=== PATIENT | female | born 1945 | race Caucasian/White ===

== ENCOUNTER 2024-05-10 09:08 | Emergency (ER) | payer MEDICARE, OTHER, SELFPAY ==
[2024-05-10 09:17] VITALS: BP 191/78
[2024-05-10 09:28] VITALS: BMI 25.4
[2024-05-10 09:31] VITALS: BP 176/74
--- NOTE | 2024-05-10 09:43 | ED.GENMED ---
History of Present Illness
General
Chief Complaint: Heart Rate Problem
Source: patient
Time Seen by Provider: 05/10/24 09:22
History of Present Illness
History of Present Illness:
78-year-old female with past medical history of hypertension and anxiety presenting to the emergency department for evaluation of palpitations that began yesterday, intermittent in nature, this morning much more constant prompting her to come to the
ER for further evaluation. Patient reports at time of my exam her symptoms are fully resolved. Patient denies any other associated symptoms although does state she believes this to be her anxiety as the cause of her symptoms. She denies chest
pain, shortness of breath, diaphoresis, exertional dyspnea, cough, fevers or infectious symptoms or any other concerns. Patient notes that she drinks tea that has caffeine in it but does not believe this to be the cause. Family history was noted
for sister having a a previous LA as well as her father believed to have an LA. Social history noncontributory. Patient notes that she has never seen a telephone operator in the past.
Past History
Past History
ED Past Medical History: HTN and Psychiatric (anxiety); Negative Hypercholesterolemia or IDDM
ED Past Surgical History: Cholecystectomy, Gynecological and Orthopedic
Social History
Tobacco: Non-smoker
Alcohol: None
Drug: None
Personal:
Living: with family
Employment: Employed
Family History
Family History: Negative Early CAD
Review of Systems
Review of Systems
All Other Systems: ROS reviewed and negative except as documented in HPI and ROS
Phy Exam
Physical Exam
Physical Exam:
GENERAL: Alert , in no apparent distress
EYE: clear conjunctiva
NECK: Supple
ENT: o/p clr, mmm.
CARDIAC: Regular rate and rhythm, no murmur .
LUNGS: Clear breath sounds bilaterally, no acute respiratory distress, no wheezes/rales/rhonchi
ABDOMEN: Soft, without focal tenderness, no r/g, no cvat
NEUROLOGICAL: Alert and oriented
SKIN: Warm and dry, skin intact.
MUSCULOSKELETAL: well perfused.
PSYCH: Normal and appropriate interaction.
Scores
Heart Failure Risk
Heart Failure Risk Score: Not Applicable
Heart Score for Chest Pain Patients
STEMI patient?: Not applicable
Withdrawal Assessment of Alcohol
Withdrawal Assessment Completed?: Not applicable
Course
Orders/Labs/Results
Orders:
Orders
05/10/24 09:09
ECG [Electrocardiogram (*1)] Urgent
Reason for Study: Chest Pain
EKG- Treatment ONCE
05/10/24 09:50
Basic Metabolic Panel Urgent
Complete Blood Count/With Diff Urgent
Magnesium Urgent
TSH Urgent
Troponin I Urgent
05/10/24 09:56
Alprazolam [Xanax] 0.5 mg PO NOW STA
Abnormal Lab Results
05/10/24
09:50
MCH 31.2 H pg
(27.0-31.0)
Absolute Lymphs (auto) 0.8 L 10^3/uL
(1.2-3.4)
Neutrophils % 75.7 H %
(42.2-75.2)
Lymphocytes % 14.9 L %
(20.5-51.1)
Chloride 110 H mmol/L
(98-107)
Glucose 111 H mg/dl
(70-99)
Calcium 8.3 L mg/dl
(8.4-10.2)
05/10/24 09:50
05/10/24 09:50
Vital Signs
Initial and Last Documented VS:
Initial Vital Signs
Temp Pulse Resp BP Pulse Ox
98.1 F 64 18 191/78 99
05/10/24 09:17 05/10/24 09:17 05/10/24 09:17 05/10/24 09:17 05/10/24 09:17
Last Documented Vital Signs
Temp Pulse Resp BP Pulse Ox
97.8 F 56 16 133/63 94
05/10/24 10:45 05/10/24 10:48 05/10/24 10:48 05/10/24 10:48 05/10/24 10:48
MDM/Problems Addressed
Differential Diagnosis Includes:
cardiac dysrhythmia, anxiety, electrolyte disturbance, caffeine intake
MDM/Problems Addressed:
78-year-old female presenting to the emergency department for evaluation of palpitations since yesterday, this morning they were more consistent which is what prompted her to come to the ER for further evaluation. Symptoms resolved at time of my
exam. EKG done in triage shows a normal sinus rhythm without ectopy or ischemic changes. Patient is hypertensive however she notes that anytime she receives medical care or gets her blood pressure checked she does get very anxious. Blood pressure
at time of my exam is improved from triage his blood pressure. 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 Anticipate discharge home with outpatient cardiology follow-up for possible holter monitor.
*Pulse Oximetry
Patient hypoxic: no
*EKG
Interpreted by ED Provider?: Yes
Comparison EKG: no changes
Heart Rate: 67
Rate: normal
Rhythm: sinus
[place]: normal axis
Ischemia: no ischemia
*Research Chief Engineer Interpretation
Rate: normal
Rhythm: sinus
*Critical Care Note
Total Time (30-74mins, 75-104mins- exclusive of procedures): Not Applicable
Patient Management
Escalation/DeEscalation of care consider admission/obs:
Patient's labs unremarkable. She remains hemodynamically stable without any signs of arrhythmia or ectopy on telemetry. Will ensure close follow-up with the chest pain hotline. Also advise she follow-up with primary care provider. Aware of
return precautions to the ER. Stable for discharge home.
ED Attending Note
-
Portions of this chart may have been created with voice recognition software.� Occasional wrong word or��sound alike� substitutions may have occurred due to the inherent limitations of voice recognition software.
Discharge Plan
Departure
Patient Disposition: Home (Routine Discharge)
Date of Disposition: 05/10/24
Time of Disposition: 10:58
Patient with high blood pressure during this ER visit?: Yes
Discharge Problem:
Palpitations
Instructions: Palpitations (DC), Chest Pain DCA Follow Up
Prescriptions:
No Action
valsartan [Diovan] 160 MG capsule
160 mg PO DAILY
aspirin [Aspir-Low] 81 MG tablet,delayed release (DR/EC)
162 mg PO TODAY
Referrals:
Hoang Birmingham MD [Family Provider] -
Interventions
Interventions:
*Risk Screen - Suicide Last Done: 05/10/24 09:17
*General Assessment Last Done: 05/10/24 09:17
*Neglect/Abuse Screening Last Done: 05/10/24 09:17
ED- Fall Risk Assessment Last Done: 05/10/24 11:22
*ED COVID-19 Vaccine History Last Done: 05/10/24 11:22
*Nursing Disposition Last Done: 05/10/24 11:22
ED- Cardiac Assessment Last Done: 05/10/24 09:28
ED- Pulmonary Assessment Last Done: 05/10/24 09:28
Discharge Date and Time
Discharge Date/Time: 05/10/24 11:23
Print Language: [id number]
[2024-05-10] MEDS: XANAX 0.5 MG PO (10:01)
[2024-05-10 10:12] LABS: % Basophils 1.4 % (0-2); % Eosinophils 0.9 % (0-6); % Immature Granulocytes 0.4 % (0-0.5); % Lymphocytes 14.9 % (20.5-51.1); % Monocytes 6.7 % (1.7-9.3); % Neutrophils 75.7 % (42.2-75.2); Absolute Basophils 0.1 10^3/uL (0-0.2); Absolute Eosinophils 0.1 10^3/uL (0-0.7); Absolute Lymphocytes 0.8 10^3/uL (1.2-3.4); Absolute Monocytes 0.4 10^3/uL (0.1-0.6); Absolute Neutrophils 4.3 10^3/uL (1.4-6.5); Hematocrit 43.7 % (37.0-47.0); Hemoglobin 14.9 g/dL (12.0-16.0); Mean Corp Hgb Conc. 34.1 g/dL (33.0-37.0); Mean Corpuscular Hgb 31.2 pg (27.0-31.0); Mean Corpuscular Volume 91.4 fL (81.0-99.0); Mean Platelet Volume 10.3 fL (7.4-10.4); Nucleated Red Blood Cells % 0 %; Platelet Count 190 10^3/uL (130-400); Red Blood Cell Count 4.78 10^6/uL (4.20-5.40); Red Cell Dist. Width 12.5 % (11.5-14.5); White Blood Cell Count 5.6 10^3/uL (4.8-10.8)
[2024-05-10 10:22] LABS: Blood Urea Nitrogen 12 mg/dl (7-17); Calcium 8.3 mg/dl (8.4-10.2); Carbon Dioxide 26 mmol/L (22-30); Chloride 110 mmol/L (98-107); Estimated Creatinine Clearance 72 ml/min; Glucose 111 mg/dl (70-99); Magnesium 1.6 mg/dl (1.6-2.3); Potassium 3.7 mmol/L (3.5-5.1); Sodium 140 mmol/L (135-145); eGFR > 60.00
[2024-05-10 10:34] LABS: Troponin I < 0.012 ng/ml
[2024-05-10 10:48] VITALS: BP 133/63
[2024-05-10 10:51] LABS: TSH 1.83 uIU/ml (0.47-4.68)
== END 2024-05-10 11:23 | disposition home or self-care (01) ==
LOC: EMR 09:08
PROVIDERS: Physician Assistant Medical; EMERGENCY PHYSICIAN Student in an Organized Health Care Education/Training Program; FAMILY PHYSICIAN Internal Medicine
DX: R00.2 Palpitations (principal); I10 Essential (primary) hypertension; F41.9 Anxiety disorder, unspecified; I25.2 Old myocardial infarction; Z90.49 Acquired absence of other specified parts of digestive tract
CPT/HCPCS: 99283; 80048; 83735; 84443; 84484; 85025; 93005

== ENCOUNTER → 2024-06-10 07:21 | Outpatient (REF) | payer MEDICARE, OTHER, SELFPAY | LOC: HWRAD 07:21 | PROVIDERS: ATTENDING PHYSICIAN Internal Medicine | DX: M81.0 Age-related osteoporosis without current pathological fracture (principal); M89.9 Disorder of bone, unspecified; Z78.0 Asymptomatic menopausal state | CPT/HCPCS: 77080 ==

== ENCOUNTER → 2024-06-21 06:40 | Outpatient (REF) | payer MEDICARE, OTHER, SELFPAY | LOC: HWWDC 06:40 | PROVIDERS: ATTENDING PHYSICIAN Specialist; FAMILY PHYSICIAN Internal Medicine | DX: Z12.31 Encounter for screening mammogram for malignant neoplasm of breast (principal) | CPT/HCPCS: 77063; 77067 ==

== ENCOUNTER 2025-01-29 10:36 | Emergency (ER) | payer MEDICARE, OTHER, SELFPAY ==
[2025-01-29 10:44] VITALS: BP 188/81
--- NOTE | 2025-01-29 11:56 | ED.GENMED ---
History of Present Illness
General
Chief Complaint: Cardiac Symptoms
Time Seen by Provider: 01/29/25 11:26
History of Present Illness
History of Present Illness:
Patient is a 79-year-old woman with history of hypertension presenting to the emergency department with arm pain. Patient states for the past week she has had arm pain to the left arm. It is localized to the mid arm. It does not radiate. Denies
any chest pain back pain shortness of breath numbness tingling weakness diaphoresis. It is not exertional. She does state that she thinks that she might of slept on it funny. She has tried Tylenol as well as some Biofreeze. She came in today as
the pain has been more constant. No traumatic injuries. No night sweats weight loss or fevers.
Past History
Past History
ED Past Medical History: HTN and Psychiatric (anxiety); Negative Hypercholesterolemia or IDDM
ED Past Surgical History: Cholecystectomy, Gynecological and Orthopedic
Social History
Tobacco: Non-smoker
Alcohol: None
Drug: None
Personal:
Living: with family
Employment: Employed
Family History
Family History: Negative Early CAD
Phy Exam
Physical Exam
Physical Exam:
GENERAL: in no acute distress
HEENT: normocephalic, extraocular movements intact
NECK: normal inspection
RESPIRATORY: no respiratory distress, clear to auscultation bilaterally
CARDIOVASCULAR: regular rate and rhythm
ABDOMEN/: soft, non-distended, non-tender to palpation, no rebound or guarding
EXTREMITIES: Tenderness to the left posterior mid humerus with no associated swelling redness or bruising
NEUROLOGIC: awake and alert, moves all extremities
SKIN: warm
Course
Orders/Labs/Results
Orders:
Orders
01/29/25 10:37
EKG [Electrocardiogram (*1)] Urgent
Reason for Study: Other
Other Reason for Exam: L arm pain
EKG- Treatment ONCE
01/29/25 11:55
Acetaminophen [Tylenol] 650 mg PO NOW STA
CR Humerus - Left Min 2 Views* Urgent
Comment:
Reason For Exam: tenderness
01/29/25 12:08
Basic Metabolic Panel Urgent
Complete Blood Count/With Diff Urgent
Troponin I Urgent
Abnormal Lab Results
01/29/25
12:08
MCH 31.1 H pg
(27.0-31.0)
Absolute Lymphs (auto) 1.0 L 10^3/uL
(1.2-3.4)
Neutrophils % 76.4 H %
(42.2-75.2)
Lymphocytes % 15.0 L %
(20.5-51.1)
Chloride 108 H mmol/L
(98-107)
Glucose 133 H mg/dl
(70-99)
01/29/25 12:08
01/29/25 12:08
Vital Signs
Initial and Last Documented VS:
Initial Vital Signs
Temp Pulse Resp BP Pulse Ox
97.8 F 75 16 188/81 97
01/29/25 10:44 01/29/25 10:44 01/29/25 10:44 01/29/25 10:44 01/29/25 10:44
Last Documented Vital Signs
Temp Pulse Resp BP Pulse Ox
97.8 F 75 16 188/81 98
01/29/25 10:44 01/29/25 10:44 01/29/25 10:44 01/29/25 10:44 01/29/25 12:03
MDM/Problems Addressed
Differential Diagnosis Includes:
Patient is a 79-year-old woman presenting to the emergency department with left arm pain that has been intermittent and has now changed to being constant. Vitals unremarkable exam does show reproducible tenderness. Differential consists of
muscular strain versus bony lesion though less likely. Considered atypical ACS. History exam not consistent with upper extremity DVT as there is no associated swelling. Initial EKG obtained from triage per my interpretation is normal sinus rhythm
with no ST changes. Will proceed with x-ray of the arm. After shared decision making we will also get basic blood work to rule out ACS with single troponin. Will pain control.
*Critical Care Note
Total Time (30-74mins, 75-104mins- exclusive of procedures): Not Applicable
Update Note
Update Note:
On reevaluation patient resting comfortably. Pain has improved. She does recall a recent fall where she landed directly on that arm. The pain did start shortly after that. Blood work unremarkable. X-ray per my interpretation with no bony
abnormality. Will discharge at this time. Strict return precautions given
ED Attending Note
-
Portions of this chart may have been created with voice recognition software.� Occasional wrong word or��sound alike� substitutions may have occurred due to the inherent limitations of voice recognition software.
Discharge Plan
Departure
Patient Disposition: Home (Routine Discharge)
Date of Disposition: 01/29/25
Time of Disposition: 13:24
Patient with high blood pressure during this ER visit?: No
Discharge Problem:
Arm pain
Instructions: Muscle, joint, and bone pain - Discharge instructions
Prescriptions:
No Action
valsartan [Diovan] 160 MG capsule
160 mg PO DAILY
aspirin [Aspir-Low] 81 MG tablet,delayed release (DR/EC)
162 mg PO TODAY
Referrals:
NONE,* [Family Provider] -
Activity Restrictions/Additional Instructions:
We discussed pain medications:
You may take Tylenol (also known as Acetaminophen) for pain.
You may take 1000mg Acetaminophen (two extra-strength tablets) per dose, which should be taken every 6-8 hours, or three times a day.
If you have normal strength Tylenol, you can take 650mg (two normal strength tablets) every 4-6 hours.
Do not take more than 3,000mg (3 grams) of Acetaminophen per day.
Never take more than as directed on the bottle.
You may also take Ibuprofen (also known as Motrin or Advil). If taking with Tylenol, alternate and take between dosing.
You may take 400-800mg of Ibuprofen per dose, which should be taken every 6-8 hours.
Do not take more than 3200mg (3.2 grams) of Ibuprofen per day.
Please see your primary care doctor soon to be reevaluated and to make sure that you are improving. We have included information about establishing care with a doctor if you do not have one.
We talked about your evaluation, diagnosis, and treatment in the Emergency Department today. You must see your primary doctor for recheck and followup care in order to evaluate your progress or any changes. Have your doctor recheck the test
results/information from the ED visit. As discussed, RETURN to the ED if you develop worsening/changing symptoms or have no improvement in symptoms after the treatments provided.
Interventions
Interventions:
*Risk Screen - Suicide Last Done: 01/29/25 10:44
*General Assessment Last Done: 01/29/25 12:01
*Neglect/Abuse Screening Last Done: 01/29/25 10:44
*ED- Fall Risk Assessment Last Done: 01/29/25 12:01
*ED COVID-19 Vaccine History Last Done: 01/29/25 12:01
ED- Pulmonary Assessment Last Done: 01/29/25 12:01
ED- Cardiac Assessment Last Done: 01/29/25 12:01
Discharge Date and Time
Print Language: SAMI
[2025-01-29] MEDS: TYLENOL 650 MG PO (11:59)
[2025-01-29 12:21] LABS: % Eosinophils 0.4 % (0-6); % Immature Granulocytes 0.3 % (0-0.5); % Monocytes 6.9 % (1.7-9.3); % Neutrophils 76.4 % (42.2-75.2); Absolute Basophils 0.1 10^3/uL (0-0.2); Absolute Monocytes 0.5 10^3/uL (0.1-0.6); Absolute Neutrophils 5.2 10^3/uL (1.4-6.5); Hematocrit 41.1 % (37.0-47.0); Hemoglobin 14.1 g/dL (12.0-16.0); Mean Corp Hgb Conc. 34.3 g/dL (33.0-37.0); Mean Corpuscular Hgb 31.1 pg (27.0-31.0); Mean Corpuscular Volume 90.5 fL (81.0-99.0); Mean Platelet Volume 9.9 fL (7.4-10.4); Nucleated Red Blood Cells % 0 %; Platelet Count 180 10^3/uL (130-400); Red Blood Cell Count 4.54 10^6/uL (4.20-5.40); Red Cell Dist. Width 12.6 % (11.5-14.5); White Blood Cell Count 6.8 10^3/uL (4.8-10.8)
[2025-01-29 12:29] LABS: Blood Urea Nitrogen 14 mg/dl (7-17); Carbon Dioxide 26 mmol/L (22-30); Chloride 108 mmol/L (98-107); Glucose 133 mg/dl (70-99); Potassium 4.2 mmol/L (3.5-5.1); Sodium 141 mmol/L (135-145); eGFR > 60.00
[2025-01-29 12:41] LABS: Troponin I < 0.012 ng/ml
[2025-01-29 13:25] VITALS: BP 165/61
== END 2025-01-29 13:35 | disposition home or self-care (01) ==
LOC: EMR 10:36
PROVIDERS: EMERGENCY PHYSICIAN Student in an Organized Health Care Education/Training Program
DX: M79.602 Pain in left arm (principal); I10 Essential (primary) hypertension; F41.9 Anxiety disorder, unspecified; Z90.49 Acquired absence of other specified parts of digestive tract; Z88.8 Allergy status to other drugs, medicaments and biological substances; Z88.1 Allergy status to other antibiotic agents; Z91.030 Bee allergy status
CPT/HCPCS: 99283; 73060; 80048; 84484; 85025; 93005

== ENCOUNTER → 2025-03-22 06:17 | Outpatient (REF) | payer MEDICARE, OTHER, SELFPAY ==
[2025-03-22 09:32] LABS: % Basophils 1.5 % (0-2); % Eosinophils 1.5 % (0-6); % Immature Granulocytes 0.2 % (0-0.5); % Lymphocytes 23.9 % (20.5-51.1); % Monocytes 7.8 % (1.7-9.3); % Neutrophils 65.1 % (42.2-75.2); Absolute Basophils 0.1 10^3/uL (0-0.2); Absolute Eosinophils 0.1 10^3/uL (0-0.7); Absolute Lymphocytes 1.3 10^3/uL (1.2-3.4); Absolute Monocytes 0.4 10^3/uL (0.1-0.6); Absolute Neutrophils 3.6 10^3/uL (1.4-6.5); Hematocrit 41.6 % (37.0-47.0); Hemoglobin 13.7 g/dL (12.0-16.0); Mean Corp Hgb Conc. 32.9 g/dL (33.0-37.0); Mean Corpuscular Hgb 30.7 pg (27.0-31.0); Mean Corpuscular Volume 93.3 fL (81.0-99.0); Mean Platelet Volume 10.1 fL (7.4-10.4); Nucleated Red Blood Cells % 0 %; Platelet Count 183 10^3/uL (130-400); Red Blood Cell Count 4.46 10^6/uL (4.20-5.40); Red Cell Dist. Width 12.4 % (11.5-14.5); White Blood Cell Count 5.5 10^3/uL (4.8-10.8)
[2025-03-22 10:00] LABS: Glycohemoglobin (HgbA1c) 5.5 % (4.0-5.6)
[2025-03-22 10:42] LABS: ALT (SGPT) 11 U/L (0-35); AST (SGOT) 17 U/L (14-36); Albumin 3.9 g/dl (3.5-5.0); Alkaline Phosphatase 47 U/L (38-126); Blood Urea Nitrogen 17 mg/dl (7-17); Calcium 9.3 mg/dl (8.4-10.2); Carbon Dioxide 26 mmol/L (22-30); Chloride 109 mmol/L (98-107); Glucose 103 mg/dl (70-99); HDL Cholesterol 58 mg/dl; LDL Cholesterol, Calculated 97 mg/dl; Potassium 4.4 mmol/L (3.5-5.1); Sodium 140 mmol/L (135-145); Total Bilirubin 0.5 mg/dl (0.2-1.3); Total Cholesterol 177 mg/dl (50-199); Total Protein 6.3 g/dl (6.3-8.2); Triglyceride 112 mg/dl (10-149); Very Low Density Lipoprotein 22 mg/dl (0-30); Vitamin D, 25-OH*** 82.1 ng/mL (30-80); eGFR > 60.00
[2025-03-22 11:42] LABS: TSH Reflex To Free T4 1.41 uIU/ml (0.47-4.68)
== END ==
LOC: HWLAB 06:17
PROVIDERS: ATTENDING PHYSICIAN Specialist; FAMILY PHYSICIAN Internal Medicine
DX: I10 Essential (primary) hypertension (principal); E78.2 Mixed hyperlipidemia; R73.03 Prediabetes; Z79.899 Other long term (current) drug therapy; E55.9 Vitamin D deficiency, unspecified
CPT/HCPCS: 36415; 80053; 80061; 82306; 83036; 84443; 85025

== ENCOUNTER → 2025-07-11 14:33 | Outpatient (REF) | payer MEDICARE, OTHER, SELFPAY | LOC: WDC 14:33 | PROVIDERS: ATTENDING PHYSICIAN Specialist; FAMILY PHYSICIAN Internal Medicine | DX: Z12.31 Encounter for screening mammogram for malignant neoplasm of breast (principal) | CPT/HCPCS: 77063; 77067 ==